=== PATIENT | male | born 1980 | race Caucasian/White ===

== ENCOUNTER 2024-07-28 05:26 | Emergency (ER) | payer SELFPAY ==
[~2024-07-28] VITALS: Ht 175.3 cm; Wt 53.9 kg
[2024-07-28 05:35] VITALS: BP 168/101; PULSE 49; TEMP 98.6; O2SAT 100
[2024-07-28] MEDS: morphine 4 MG/ML inj SYRINge IV ONE ×2 (05:53→06:54)
[2024-07-28] MEDS: ondansetron/PF 4mg/2ml inj IV ONE (05:53)
[2024-07-28] MEDS ORDERED: iohexol 300mg/ml 100ml inj. ONE (06:14)
[2024-07-28 06:24] LABS: BASOPHILS % (AUTO) 0.6 % (0-1); EOSINOPHILS # (AUTO) 0.6 X10'3 (0-0.9); EOSINOPHILS % (AUTO) 6.6 % (0-6); HEMATOCRIT 42.3 % (42.0-52.0); HEMOGLOBIN 14.7 g/dl (14.0-17.9); LYMPHOCYTES # (AUTO) 2.2 X10'3 (1.1-4.8); LYMPHOCYTES % (AUTO) 25.5 % (21-51); MEAN CORPUSCULAR HEMOGLOBIN 29.7 PG (27.0-31.0); MEAN CORPUSCULAR HGB CONC 34.7 g/dL (33.0-36.5); MEAN CORPUSCULAR VOLUME 85.5 FL (78-98); MEAN PLATELET VOLUME 8.2 FL (7.4-10.4); MONOCYTES # (AUTO) 0.8 X10'3 (0-0.9); MONOCYTES % (AUTO) 8.9 % (2-12); NEUTROPHILS # (AUTO) 5.1 X10'3 (1.8-7.7); NEUTROPHILS % (AUTO) 58.4 % (42-75); PLATELET COUNT 279 X10'3 (140-440); RED BLOOD COUNT 4.94 X10'6 (4.70-6.10); RED CELL DISTRIBUTION WIDTH 12.9 % (11.5-14.5); WHITE BLOOD COUNT 8.7 X10'3 (4.5-11.0)
[2024-07-28 06:32] LABS: ALANINE AMINOTRANSFERASE 26 U/L (12-78); ALBUMIN 3.7 G/DL (3.4-5.0); ALBUMIN/GLOBULIN RATIO 1.2 (1.1-1.5); ALKALINE PHOSPHATASE 74 IU/L (46-116); ANION GAP 12 (8-16); ASPARTATE AMINO TRANSFERASE 33 U/L (10-37); BILIRUBIN,TOTAL 0.3 MG/DL (0.1-1.0); BLOOD UREA NITROGEN 14 MG/DL (7-18); BUN/CREATININE RATIO 10.8 (10.0-20.0); CALCIUM 8.3 MG/DL (8.5-10.1); CHLORIDE 106 MMOL/L (99-107); GLUCOSE 107 MG/DL (70-104); LIPASE 24 U/L (16-77); POTASSIUM 3.8 MMOL/L (3.5-5.1); SODIUM 143 MMOL/L (135-145); TOTAL CARBON DIOXIDE 25.3 MMOL/L (24-32); TOTAL PROTEIN 6.8 G/DL (6.4-8.2); eCRCL 54 ML/MIN; eGFR 59 ML/MIN
--- NOTE | 2024-07-28 06:42 | Physician Documentation ---
History of Present Illness Chief Complaint: Abdominal Pain Stated Complaint: ABDOMINAL PAIN Time Seen by MD: 06:08 Source: patient, family Mode of Arrival: Ambulatory HPI 44-year-old male presenting for sudden onset right lower quadrant abdominal pain. He has on his hands and knees on the floor giving a history. No prior history of similar. No chest pain or shortness of breath Medication Reconciliation Allergies: Coded Allergies: No Known Allergies (Unverified , 07/28/24) Review of Systems Constitutional: Denies: fever Physical Exam Vital Signs: Temperature: 98.6, Source: Temporal, Heart Rate: 49, Respiratory Rate: 18, BP: 168/101, Pulse Oximetry: 100, Weight: 53.900 General Appearance On his hands and knees on the floor severe pain. Diaphoretic Abdomen soft nontender Neuro awake alert oriented Progress Progress Note Reassess patient at 8:18 a.m. he has passed his kidney stone I have visibly observed in his urinal and his pain has resolved Results/Orders Reviewed/noted all lab results: Yes (Mild GARETH, no leukocytosis) Results/Orders Medications Received in ER Medications (Trade) Dose Ordered Sig/Elroy Route PRN Reason Start Time Stop Time Status Last Admin Dose Admin (morphine inj.) 4 mg ONCE ONCE IV 07/28/24 05:50 07/28/24 05:51 DC 07/28/24 05:53 4 MG (Zofran 4mg/2ml vial) 4 mg ONCE ONCE IV 07/28/24 05:50 07/28/24 05:51 DC 07/28/24 05:53 4 MG Vital Signs 07/28/24 07/28/24 07/28/24 07/28/24 05:35 05:53 06:04 06:05 Temp 98.6 Pulse 49 Resp 15 16 16 18 B/P (MAP) 168/101 Pulse Ox 100 Laboratory Tests Test 07/28/24 06:02 07/28/24 06:08 White Blood Count 8.7 Red Blood Count 4.94 Hemoglobin 14.7 Hematocrit 42.3 Mean Corpuscular Volume 85.5 Mean Corpuscular Hemoglobin 29.7 Mean Corpuscular Hemoglobin Concent 34.7 Red Cell Distribution Width 12.9 Platelet Count 279 Mean Platelet Volume 8.2 Neutrophils (%) (Auto) 58.4 Lymphocytes (%) (Auto) 25.5 Monocytes (%) (Auto) 8.9 Eosinophils (%) (Auto) 6.6 H Basophils (%) (Auto) 0.6 Neutrophils # (Auto) 5.1 Lymphocytes # (Auto) 2.2 Monocytes # (Auto) 0.8 Eosinophils # (Auto) 0.6 Basophils # (Auto) 0.0 CBC Comment Sodium Level 143 Potassium Level 3.8 Chloride Level 106 Carbon Dioxide Level 25.3 Anion Gap 12 Blood Urea Nitrogen 14 Creatinine 1.30 H Estimated GFR/1.73 m2 59 BUN/Creatinine Ratio 10.8 Glucose Level 107 H Calcium Level 8.3 L Total Bilirubin 0.3 Aspartate Amino Transf (AST/SGOT) 33 Alanine Aminotransferase (ALT/SGPT) 26 Alkaline Phosphatase 74 Total Protein 6.8 Albumin 3.7 Globulin 3.1 Albumin/Globulin Ratio 1.2 Lipase 24 Chemistry Comments Urine Comment EKG/XRAY/CT/US/VASC/MRI CT : Impression I independently interpreted CT abdomen and pelvis shows right hydronephrosis with small distal UPJ stone Medical Decision Making Differential Dx:Considerations: Include: Appendicitis, Bowel obstruction, Cholangitis Departure Disposition: 01 HOME / SELF CARE / HOMELESS Impression: Primary Impression: Urolithiasis Qualified Codes: N20.1 - Calculus of ureter Additional Instructions: Go home and drink plenty of fluids. I recommend that you get a 1 qt water bottle and drink at least 3 these daily indefinitely to prevent future stone formation. If you develop a fever or increasing discomfort please return to the emergency department otherwise treat your pain with Aleve 500 mg twice daily for the next 2-3 days Referrals: NO PRIMARY CARE PROVIDER (PCP) Signature Scribe Signature: altaf Attestation: NANCY Kebede MD July 28, 2024 06:42
[2024-07-28 06:46] LABS: BILIRUBIN,URINE NEGATIVE (Neg); CLARITY,URINE CLEAR (Clear); COLOR,URINE YELLOW (Yellow); GLUCOSE, URINE NEGATIVE (Neg); KETONES,URINE TRACE mg/dl (Neg); LEUKOCYTE ESTERASE ,URINE NEGATIVE (Neg); NITRITES, URINE NEGATIVE (Neg); OCCULT BLOOD,URINE NEGATIVE (Neg); PH,URINE 8.5 (4.8-8.0); PROTEIN,URINE TRACE mg/dl (Neg); UROBILINOGEN,URINE 0.2 E.U/dL (0.2-1.0)
[2024-07-28 06:51] LABS: UA COLLECTION TYPE CLN CATCH MIDSTREAM
[2024-07-28] MEDS: ringers solution, lacted 1,000 ML IV ONE (06:54)
[2024-07-28] MEDS: ketorolac trometh 15mg/ml vial 15 MG/ML ML IV ONE (06:54)
[2024-07-28] MEDS: tamsulosin 0.4mg capsule PO ONE (06:54)
--- NOTE | 2024-07-28 06:54 | RADIOLOGY REPORT ---
EXAM: CT Abdomen and Pelvis With Intravenous Contrast CLINICAL INDICATION: RLQ pain TECHNIQUE: Axial computed tomography images of the abdomen and pelvis with intravenous contrast. Th is CT exam was performed using one or more of the following dose reduction techniques: automated exp osure control, adjustment of the mA and/or kV according to patient size, and/or use of iterative christoph nstruction technique. CONTRAST: COMPARISON: None FINDINGS: LUNG BASES: Unremarkable. No mass. No consolidation. ABDOMEN: LIVER: Hepatomegaly with fatty infiltration. GALLBLADDER AND BILE DUCTS: Unremarkable. No calcified stones. No ductal dilation. PANCREAS: Unremarkable. No mass. No ductal dilation. SPLEEN: Unremarkable. No splenomegaly. ADRENALS: Unremarkable. No mass. KIDNEYS AND URETERS: 2 mm obstructing calculus of the right UVJ resulting in mild to moderate hydro ureteronephrosis. STOMACH AND BOWEL: Unremarkable. No obstruction. No mucosal thickening. PELVIS: APPENDIX: No findings to suggest acute appendicitis. BLADDER: Unremarkable. No mass. REPRODUCTIVE: Unremarkable as visualized. ABDOMEN and PELVIS: INTRAPERITONEAL SPACE: Unremarkable. No free air. No significant fluid collection. BONES/JOINTS: No acute fracture. No dislocation. SOFT TISSUES: Umbilical hernia containing fat. VASCULATURE: Unremarkable. No abdominal aortic aneurysm. LYMPH NODES: Unremarkable. No enlarged lymph nodes. OTHER FINDINGS: . . IMPRESSION: 1. 2 mm obstructing calculus of the right UVJ resulting in mild to moderate hydroureteronephrosis. 2. Hepatomegaly with fatty infiltration. 3. Umbilical hernia containing fat.
[2024-07-28 07:01] LABS: SQUAMOUS EPITHELIAL CELL,UR FEW /LPF (FEW)
[2024-07-28 07:03] LABS: AMORPHOUS PHOSPHATES 1+
[2024-07-28 07:04] LABS: BACTERIA,URINE NONE SEEN /HPF (Neg); RBC,URINE NONE SEEN /HPF (0-2); WBC,URINE NONE SEEN /HPF (0-4)
[2024-07-28 07:26] VITALS: RESP 16
== END 2024-07-28 08:37 | disposition home or self-care (01) ==
LOC: ER 05:27
DX: N20.9 Urinary calculus, unspecified (principal)
CPT/HCPCS: 36415; 74177; 80053; 81001; 83690; 85025; 96361; 96374; 96375; 96376; 99285; J1885; J2270; J2405; J7120; Q9967